=== PATIENT | female | born 1955 | race African-American/Black ===

== ENCOUNTER 2017-03-18 14:16 | Emergency (ER) | payer MEDICAID ==
[~2017-03-18] VITALS: Ht 160 cm; Wt 101.7 kg
[2017-03-18] MEDS ORDERED: HUMA100I5 SC (14:37)
[2017-03-18] MEDS ORDERED: OMEP40CA2 PO ×2 (14:37→20:38)
[2017-03-18] MEDS ORDERED: COUM2.5T17 PO (14:37)
[2017-03-18] MEDS ORDERED: LISI20TA3 PO (14:37)
[2017-03-18] MEDS ORDERED: INSULANT SC (14:37)
[2017-03-18] MEDS ORDERED: METO37.5 PO (14:37)
[2017-03-18] MEDS ORDERED: PRAV40TA2 PO (14:37)
[2017-03-18] MEDS ORDERED: GLYB25TA PO (14:37)
[2017-03-18 15:22] LABS: BASO # 0.1 K/mm3 (0.0-0.2); BASO % 0.8 % (0.0-1.0); EOS # 0.2 K/mm3 (0.0-0.50); EOS % 3.4 % (0.0-3.0); LARGE UNSTAINED CELL # 0.2 K/mm3 (0.0-0.4); LARGE UNSTAINED CELL % 2.4 % (0.0-4.0); LYMPH # 2.5 K/mm3 (1.5-4.5); LYMPH % 31.2 % (24.0-44.0); MEAN CORPUSCULAR HEMOGLOBIN 27.6 pg (27.0-33.0); MEAN CORPUSCULAR HGB CONC 31.3 g/dl (32.0-36.5); MEAN CORPUSCULAR VOLUME 88.4 fl (80.0-96.0); MONO # 0.3 K/mm3 (0.0-0.8); MONO % 4.3 % (0.0-5.0); NEUTROPHILS # 4.3 K/mm3 (1.8-7.7); NEUTROPHILS % 57.9 % (36.0-66.0); PLATELET COUNT, AUTOMATED 182 k/mm3 (150-450); RED CELL DISTRIBUTION WIDTH 14.6 % (11.5-14.5); WHITE BLOOD COUNT 7.4 K/mm3 (4.0-10.0)
[2017-03-18 15:28] LABS: INR 1.09
[2017-03-18 15:33] LABS: ALBUMIN 3.1 GM/DL (3.2-5.2); ALBUMIN/GLOBULIN RATIO 0.84 (1.00-1.93); ALKALINE PHOSPHATASE 75 U/L (45-117); ALT/SGPT 31 U/L (12-78); ANION GAP 9 MEQ/L (8-16); AST/SGOT 27 U/L (15-37); BILIRUBIN,DIRECT 0.2 MG/DL (0.0-0.2); BILIRUBIN,TOTAL 0.6 MG/DL (0.2-1.0); BLOOD UREA NITROGEN 17 MG/DL (7-18); CALCIUM LEVEL 8.4 MG/DL (8.8-10.2); CARBON DIOXIDE LEVEL 27 MEQ/L (21-32); CHLORIDE LEVEL 105 MEQ/L (98-107); CREATININE FOR GFR 1.17 MG/DL (0.55-1.02); GLOMERULAR FILTRATION RATE > 60.0 (>45); GLUCOSE, FASTING 287 MG/DL (80-110); POTASSIUM SERUM 4.2 MEQ/L (3.5-5.1); SODIUM LEVEL 141 MEQ/L (136-145); TOTAL PROTEIN 6.8 GM/DL (6.4-8.2)
--- NOTE | 2017-03-18 16:37 | REP ---
Clinical: Acute abdominal pain. Technique: Vo scale ultrasound using curved array transducer. Findings: The liver and pancreas are normal in contour, size, and echogenicity without focal hepatic or pancreatic lesions identified. The gallbladder is normal without gallstones, wall thickening or pericholecystic fluid. No biliary ductal dilatation is appreciated, and the common bile duct measures 2.2 mm diameter. The right kidney is normal in reniform shape without hydronephrosis and measures 11.7 x 4.6 x 5.0 cm. No ascites. Impression: Normal right upper quadrant and gallbladder abdominal ultrasound. Signed by Mohamud Sims MD 03/18/2017 04:28 P
[2017-03-18] MEDS ORDERED: GASTROGRAFIN SOLUTION 30ML (Q9963) PO ONE ×2 (17:30→17:50)
[2017-03-18] MEDS ORDERED: ISOVUE-370 76% 100ML VIAL (Q9967) As Ordered ONE (19:42)
[2017-03-18] MEDS ORDERED: LISINOPRIL 10 MG TAB PO ONE (20:15)
[2017-03-18] MEDS ORDERED: LISINOPRIL 5 MG TAB PO ONE (20:15)
--- NOTE | 2017-03-18 20:30 | REPUSA ---
CLINICAL HISTORY: Pancreatitis. TECHNIQUE: CT abdomen and pelvis following administration of IV contrast. Total DLP 846.7 mGy*cm COMPARISON: No pertinent prior studies are available at this time. CT ABDOMEN WITH CONTRAST: Lung bases: No lung base infiltrate or effusion. Mild cardiomegaly. Median sternotomy. Liver: No intrahepatic ductal dilation. Gallbladder: Normally distended. Pancreas: No pancreatic duct dilation. Duodenum: Duodenal diverticulum noted. Bowel loops: Nondistended. Spleen: Normal size. Adrenals: Bilateral adrenal thickening. Kidneys: No hydronephrosis. Bilateral cortical scarring. Aorta: Normal caliber. Peritoneum: No free air. Lumbar spine: Degenerative spondylotic changes at multiple levels, most pronounced at L5-S1. CT PELVIS WITH CONTRAST: Colon: Scattered diverticula without evidence of diverticulitis. Appendix: Normal appendix is seen. Bladder: Normally distended. Pelvic organs: Unremarkable. Peritoneum: No fluid. IMPRESSION: 1. No acute abdominal findings. No CT evidence of pancreatitis. 2. Chronic bilateral renal cortical scarring. 3. Colonic diverticulosis.
[2017-03-18 20:31] VITALS: BP 191/96
[2017-03-18 20:49] VITALS: BP 177/115
--- NOTE | 2017-03-19 07:55 | ECGEPIP ---
Stationary ECG Study [facility] - ED Test Date: 2017-03-18 Pat Name: LILY FRANCISCO Department: Room: - Gender: F Jira Developer: rn : [id number] Requested By: Aly Tellez Order Number: [id number] Reading MD: Denise Barros Measurements Intervals [place] Rate: 80 P: IA: 0 QRS: 5 QRSD: 98 T: 91 QT: 396 QTc: 458 Interpretive Statements ATRIAL FIBRILLATION NONSPECIFIC T-WAVE ABNORMALITY NO PRIOR FOR COMPARISON Electronically Signed On 03-19-2017 7:55:17 EDT by Denise Barros
== END 2017-03-18 20:57 | disposition home or self-care (01) ==
LOC: M ED 14:16
DX: K21.9 Gastro-esophageal reflux disease without esophagitis (principal); I10 Essential (primary) hypertension; E11.9 Type 2 diabetes mellitus without complications; I48.91 Unspecified atrial fibrillation; E78.5 Hyperlipidemia, unspecified; E66.9 Obesity, unspecified; Z79.01 Long term (current) use of anticoagulants; Z79.899 Other long term (current) drug therapy; Z79.4 Long term (current) use of insulin; Z95.3 Presence of xenogenic heart valve
CPT/HCPCS: 74177; 76705; 80048; 80076; 82550; 82553; 83690; 85025; 85610; 93005; 93041; 99285; Q9963; Q9967

== ENCOUNTER → 2017-03-18 | Outpatient (CLI) | payer MEDICAID ==
[~2017-03-18] MED LIST: COUM2.5T17 PO; GLYB25TA PO; HUMA100I5 SC; INSULANT SC; LISI20TA3 PO; METO37.5 PO; OMEP40CA2 PO; PRAV40TA2 PO
--- NOTE | 2017-03-18 13:39 | REP ---
Clinical: Shortness of breath. Technique: PA and lateral. Comparison: None. Findings: The patient is status post sternotomy and cardiac valve repair. Cardiomegaly is appreciated along with findings to suggest interstitial edema. No focal consolidation, effusion, or pneumothorax. Skeletal structures intact. Impression: Cardiomegaly and findings to suggest mild interstitial edema. Signed by Mohamud Sims MD 03/18/2017 01:30 P
== END ==
LOC: M LRY 13:06
PROVIDERS: ATTEND Nurse Practitioner Family
DX: R06.02 Shortness of breath (principal); I51.7 Cardiomegaly

== ENCOUNTER → 2017-03-18 | Outpatient (REF) | payer MEDICAID | LOC: M SFHCLERA 12:58 | PROVIDERS: ATTEND Nurse Practitioner Family | DX: R10.84 Generalized abdominal pain (principal) ==

== ENCOUNTER → 2017-03-22 | Outpatient (REF) | payer MEDICAID ==
[2017-03-22 11:38] LABS: MEAN CORPUSCULAR HEMOGLOBIN 28.3 pg (27.0-33.0); MEAN CORPUSCULAR HGB CONC 32.1 g/dl (32.0-36.5); MEAN CORPUSCULAR VOLUME 88.1 fl (80.0-96.0); RED CELL DISTRIBUTION WIDTH 14.4 % (11.5-14.5); WHITE BLOOD COUNT 7.2 K/mm3 (4.0-10.0)
[2017-03-22 11:39] LABS: INR 1.03
[2017-03-22 11:56] LABS: ALBUMIN 3.3 GM/DL (3.2-5.2); ALBUMIN/GLOBULIN RATIO 0.87 (1.00-1.93); BILIRUBIN,TOTAL 0.6 MG/DL (0.2-1.0); CALCIUM LEVEL 9.5 MG/DL (8.8-10.2); CREATININE FOR GFR 1.24 MG/DL (0.55-1.02); GLOMERULAR FILTRATION RATE 56.2 (>45); POTASSIUM SERUM 4.6 MEQ/L (3.5-5.1); TOTAL PROTEIN 7.1 GM/DL (6.4-8.2)
[2017-03-22 14:16] LABS: BASOPHILS 1 % (0-4); EOSINOPHILS 1 % (0-5)
[2017-03-22 14:18] LABS: ANISOCYTOSIS 1+
== END ==
LOC: M SFHCLERA 09:08
PROVIDERS: ATTEND Family Medicine
DX: I10 Essential (primary) hypertension (principal); Z95.2 Presence of prosthetic heart valve; Z79.01 Long term (current) use of anticoagulants; Z51.81 Encounter for therapeutic drug level monitoring; E11.9 Type 2 diabetes mellitus without complications; K21.9 Gastro-esophageal reflux disease without esophagitis

== ENCOUNTER → 2017-03-29 | Outpatient (CLI) | payer MEDICAID ==
--- NOTE | 2017-03-29 16:23 | REP ---
Chest x-ray: Two views. History: Orthopnea. Comparison study: March 18, 2017. Findings: The patient is status post median sternotomy and what appears to be an aortic valve replacement. The heart is moderately enlarged unchanged from prior study with cardiothoracic ratio today measuring 17.5 cm over 29.1 cm. Pulmonary vasculature is slightly cephalized. There is no evidence of pleural effusion or pulmonary edema. No infiltrate is seen. Impression: Moderate cardiac enlargement status post valve replacement. Pulmonary vascular cephalization. No pulmonary edema or pleural effusion seen. Signed by Wang Rose MD 03/29/2017 06:40 P
== END ==
LOC: M LRY 12:04
PROVIDERS: ATTEND Family Medicine
DX: R06.01 Orthopnea (principal); Z95.2 Presence of prosthetic heart valve

== ENCOUNTER → 2017-03-29 | Outpatient (REF) | payer MEDICAID ==
[2017-03-29 17:39] LABS: INR 1.03
== END ==
LOC: M SFHCLERA 11:36
PROVIDERS: ATTEND Family Medicine
DX: R06.01 Orthopnea (principal); Z79.01 Long term (current) use of anticoagulants

== ENCOUNTER → 2017-04-06 | Outpatient (REF) | payer MEDICAID ==
[2017-04-06 15:49] LABS: INR 1.11
== END ==
LOC: M SFHCLERA 09:09
PROVIDERS: ATTEND Family Medicine
DX: I48.91 Unspecified atrial fibrillation (principal)

== ENCOUNTER → 2017-04-19 | Outpatient (REF) | payer MEDICAID ==
[2017-04-19 13:07] LABS: INR 1.5
== END ==
LOC: M SFHCLERA 09:16
PROVIDERS: ATTEND Family Medicine
DX: Z79.01 Long term (current) use of anticoagulants (principal)

== ENCOUNTER → 2017-05-25 | Outpatient (REF) | payer OTHER | LOC: M SFHCLERA 08:42 | PROVIDERS: ATTEND Family Medicine | DX: E11.22 Type 2 diabetes mellitus with diabetic chronic kidney disease (principal); N18.9 Chronic kidney disease, unspecified ==

== ENCOUNTER → 2017-06-05 | Outpatient (REF) | payer OTHER ==
[2017-06-05 12:36] LABS: INR 1.36
== END ==
LOC: M SFHCLERA 08:09
PROVIDERS: ATTEND Family Medicine
DX: Z79.01 Long term (current) use of anticoagulants (principal)

== ENCOUNTER → 2017-06-12 | Outpatient (REF) | payer OTHER ==
[2017-06-12 11:40] LABS: INR 1.13
== END ==
LOC: M SFHCLERA 09:49
PROVIDERS: ATTEND Family Medicine
DX: I48.91 Unspecified atrial fibrillation (principal)

== ENCOUNTER → 2017-06-21 | Outpatient (REF) | payer OTHER ==
[2017-06-21 16:42] LABS: INR 1.53
== END ==
LOC: M SFHCLERA 12:29
PROVIDERS: ATTEND Family Medicine
DX: I48.91 Unspecified atrial fibrillation (principal)

== ENCOUNTER → 2017-06-28 | Outpatient (REF) | payer OTHER ==
[2017-06-28 11:49] LABS: INR 3.59
== END ==
LOC: M SFHCLERA 08:24
PROVIDERS: ATTEND Family Medicine
DX: I48.91 Unspecified atrial fibrillation (principal)

== ENCOUNTER → 2017-07-26 | Outpatient (REF) | payer OTHER ==
[2017-07-26 11:30] LABS: ANION GAP 5 MEQ/L (8-16); BLOOD UREA NITROGEN 22 MG/DL (7-18); CARBON DIOXIDE LEVEL 31 MEQ/L (21-32); CHLORIDE LEVEL 105 MEQ/L (98-107); GLOMERULAR FILTRATION RATE > 60.0 (>45); GLUCOSE, FASTING 188 MG/DL (80-110); POTASSIUM SERUM 4.3 MEQ/L (3.5-5.1); SODIUM LEVEL 141 MEQ/L (136-145)
[2017-07-26 11:39] LABS: INR 4.69; PROTHROMBIN TIME 46.7 SECONDS (12.4-14.5)
== END ==
LOC: M SFHCLERA 08:10
DX: R79.1 Abnormal coagulation profile (principal)

== ENCOUNTER → 2017-07-28 | Outpatient (REF) | payer OTHER ==
[2017-07-28 13:14] LABS: INR 2.97; PROTHROMBIN TIME 32.2 SECONDS (12.4-14.5)
== END ==
LOC: M SFHCLERA 09:10
DX: Z79.01 Long term (current) use of anticoagulants (principal)

== ENCOUNTER → 2017-08-01 | Outpatient (REF) | payer OTHER ==
[2017-08-01 17:37] LABS: PROTHROMBIN TIME 49.8 SECONDS (12.4-14.5)
[2017-08-01 18:19] LABS: INR 5.07
== END ==
LOC: M SFHCLERA 14:19
DX: Z79.01 Long term (current) use of anticoagulants (principal)

== ENCOUNTER → 2017-08-14 | Outpatient (REF) | payer OTHER ==
[2017-08-14 11:59] LABS: INR 2.73; PROTHROMBIN TIME 30.1 SECONDS (12.4-14.5)
== END ==
LOC: M SFHCLERA 08:40
DX: Z79.01 Long term (current) use of anticoagulants (principal)

== ENCOUNTER → 2017-08-22 | Outpatient (REF) | payer OTHER ==
[2017-08-22 11:37] LABS: INR 4.64; PROTHROMBIN TIME 46.3 SECONDS (12.4-14.5)
== END ==
LOC: M SFHCLERA 07:14
DX: Z79.01 Long term (current) use of anticoagulants (principal)
CPT/HCPCS: 85610

== ENCOUNTER → 2017-08-24 | Outpatient (REF) | payer OTHER ==
[2017-08-24 11:29] LABS: INR 3.28; PROTHROMBIN TIME 34.9 SECONDS (12.4-14.5)
== END ==
LOC: M SFHCLERA 08:07
DX: Z51.81 Encounter for therapeutic drug level monitoring (principal); Z79.01 Long term (current) use of anticoagulants
CPT/HCPCS: 85610

== ENCOUNTER → 2017-09-04 | Outpatient (REF) | payer OTHER ==
[2017-09-04 11:38] LABS: INR 2.55; PROTHROMBIN TIME 28.5 SECONDS (12.4-14.5)
== END ==
LOC: M SFHCLERA 09:51
DX: Z79.01 Long term (current) use of anticoagulants (principal)

== ENCOUNTER → 2017-09-11 | Outpatient (REF) | payer OTHER ==
[2017-09-11 11:23] LABS: PROTHROMBIN TIME 21.4 SECONDS (12.4-14.5)
== END ==
LOC: M SFHCLERA 08:19
DX: Z79.01 Long term (current) use of anticoagulants (principal)
CPT/HCPCS: 85610

== ENCOUNTER → 2017-09-25 | Outpatient (REF) | payer OTHER ==
[2017-09-25 11:38] LABS: INR 3.14; PROTHROMBIN TIME 33.7 SECONDS (12.4-14.5)
== END ==
LOC: M SFHCLERA 08:24
DX: Z51.81 Encounter for therapeutic drug level monitoring (principal); Z79.01 Long term (current) use of anticoagulants

== ENCOUNTER → 2017-10-02 | Outpatient (REF) | payer OTHER ==
[2017-10-02 11:43] LABS: INR 3.65; PROTHROMBIN TIME 38.1 SECONDS (12.4-14.5)
== END ==
LOC: M SFHCLERA 08:34
DX: Z79.01 Long term (current) use of anticoagulants (principal)

== ENCOUNTER → 2017-10-09 | Outpatient (CLI) | payer OTHER ==
[2017-10-09 11:49] LABS: PROTHROMBIN TIME 25.3 SECONDS (12.4-14.5)
== END ==
LOC: M LRY 09:10
DX: Z51.81 Encounter for therapeutic drug level monitoring (principal); Z79.01 Long term (current) use of anticoagulants
CPT/HCPCS: 85610

== ENCOUNTER 2017-10-24 00:37 | Inpatient (IN) | payer OTHER ==
[2017-10-24] MEDS ORDERED: ALBUTEROL SULFATE 2.5 MG/0.5 ML INH NEB SOLN NEB (02:15)
[2017-10-24] MEDS: NS 500 ML IV (02:45)
[2017-10-24 02:52] LABS: BASO % 0.5 % (0.0-1.0); EOS # 0.1 10^3/uL (0.0-0.50); EOS % 1.1 % (0.0-3.0); HEMATOCRIT 40.8 % (36.0-47.0); LYMPH # 1.9 10^3/uL (1.5-4.5); MEAN CORPUSCULAR HEMOGLOBIN 27.6 pg (27.0-33.0); MEAN CORPUSCULAR HGB CONC 31.9 g/dl (32.0-36.5); MEAN CORPUSCULAR VOLUME 86.6 fl (80.0-96.0); MONO # 0.7 10^3/uL (0.0-0.8); MONO % 8.5 % (0.0-5.0); NEUTROPHILS # 5.8 10^3/uL (1.8-7.7); NEUTROPHILS % 66.9 % (36.0-66.0); PLATELET COUNT, AUTOMATED 244 10^3/uL (150-450); RED BLOOD COUNT 4.71 10^6/uL (4.00-5.40); RED CELL DISTRIBUTION WIDTH 14.7 % (11.5-14.5); WHITE BLOOD COUNT 8.7 10^3/uL (4.0-10.0)
[2017-10-24] MEDS: MORPHINE 4 MG/ML 1ML VIAL/SYRINGE (J2270) IV ×2 (02:53→07:45)
[2017-10-24 02:57] LABS: INR 3.31; PROTHROMBIN TIME 35.2 SECONDS (12.4-14.5)
[2017-10-24 02:58] LABS: PARTIAL THROMBOPLASTIN TIME 56.3 SECONDS (26.8-37.9)
[2017-10-24 03:08] LABS: LACTIC ACID SEPSIS PROTOCOL 1.5 MMOL/L (0.4-2.0)
[2017-10-24 03:08] LABS: ALBUMIN 3.5 GM/DL (3.2-5.2); ALKALINE PHOSPHATASE 110 U/L (45-117); ALT/SGPT 26 U/L (12-78); ANION GAP 8 MEQ/L (8-16); AST/SGOT 27 U/L (7-37); BILIRUBIN,DIRECT 0.3 MG/DL (0.0-0.2); BILIRUBIN,TOTAL 1.2 MG/DL (0.2-1.0); BLOOD UREA NITROGEN 17 MG/DL (7-18); CALCIUM LEVEL 8.9 MG/DL (8.8-10.2); CARBON DIOXIDE LEVEL 26 MEQ/L (21-32); CHLORIDE LEVEL 103 MEQ/L (98-107); CK-MB VALUE MASS 1.5 NG/ML (<3.6); CPK CREATINE PHOSPHOKINASE 150 U/L (26-192); CREATININE FOR GFR 1.18 MG/DL (0.55-1.30); GLOMERULAR FILTRATION RATE 59.5 (>45); GLUCOSE, FASTING 301 MG/DL (70-100); LIPASE 403 U/L (73-393); POTASSIUM SERUM 4.3 MEQ/L (3.5-5.1); SODIUM LEVEL 137 MEQ/L (136-145); TOTAL PROTEIN 7.4 GM/DL (6.4-8.2); TROPONIN I < 0.02 NG/ML (< 0.10)
[2017-10-24] MEDS: GASTROGRAFIN SOLUTION 30ML PO ×2 (03:35→04:05)
[2017-10-24] MEDS: HumuLIN R (REGULAR) INSULIN (NovoLIN R) **100U/ML** PER UNIT IV (06:32)
[2017-10-24] MEDS: METOPROLOL TARTRATE 100 MG TAB PO (07:00)
[2017-10-24 07:05] LABS: BEDSIDE GLUCOSE 228 MG/DL (80-115)
[2017-10-24] MEDS: amLODIPine 5 MG TAB PO ×2 (07:12→08:00)
[2017-10-24] MEDS: FUROSEMIDE 40 MG/4 ML VIAL (J1940) IV ×3 (07:20→23:58)
[2017-10-24] MEDS ORDERED: PERCOCET 5MG/325MG TAB PO (07:30)
[2017-10-24] MEDS ORDERED: ONDANSETRON 4MG/2ML VIAL (J2405) IV (07:30)
[2017-10-24] MEDS ORDERED: MORPHINE 4 MG/ML 1ML VIAL/SYRINGE (J2270) IV (07:30)
[2017-10-24] MEDS ORDERED: DEXTROSE 50% 50 ML SYRINGE IV (07:45)
[2017-10-24] MEDS ORDERED: amLODIPine 5 MG TAB PO (07:45)
[2017-10-24] MEDS ORDERED: GLUCAGON FOR INJ 1 MG VIAL (J1610) SC (07:45)
[2017-10-24] MEDS ORDERED: GI COCKTAIL 50ML BTL(HYOSCYAMINE/MAALOX/LIDOCAINE VISCOUS)(1:3:1) PO (07:45)
[2017-10-24] MEDS: oxyCODONE 5MG TAB PO (07:45)
[2017-10-24] MEDS ORDERED: GLUCOSE 4 GM CHEW TABLET PO (07:45)
[2017-10-24] MEDS: GI COCKTAIL 50ML BTL(HYOSCYAMINE/MAALOX/LIDOCAINE VISCOUS)(1:3:1) PO (08:33)
[2017-10-24] MEDS: D5W/0.45% SODIUM CHLORIDE 1,000 ML IV (08:33)
[2017-10-24] MEDS: SUCRALFATE SUSP 1GM/10ML UD PO (08:33)
[2017-10-24] MEDS: ENOXAPARIN 40 MG/0.4 ML SYRINGE (J1650) SC (09:00)
[2017-10-24] MEDS: PANTOPRAZOLE 40MG INJ (PROTONIX) (C9113) IV (09:20)
[2017-10-24] MEDS ORDERED: DOCUSATE SODIUM 100 MG CAP PO (10:15)
[2017-10-24 10:53] LABS: APPEARANCE, URINE CLEAR (CLEAR); BACTERIA, URINE AUTO NEGATIVE (NEGATIVE); BILIRUBIN, URINE AUTO NEGATIVE (NEGATIVE); BLOOD, URINE BLOOD NEGATIVE (NEGATIVE); COLOR, URINE YELLOW (YELLOW); GLUCOSE, URINE (UA) AUTO NEGATIVE (NEGATIVE); KETONE, URINE AUTO NEGATIVE (NEGATIVE); LEUKOCYTE ESTERASE, URINE AUTO NEGATIVE (NEGATIVE); MUCUS, URINE SMALL (NEGATIVE); NITRITE, URINE AUTO NEGATIVE (NEGATIVE); PROTEIN, URINE AUTO 1+ mg/dL (NEGATIVE); RBC, URINE AUTO 4 /HPF (0-3); SPECIFIC GRAVITY URINE AUTO 1.006 (1.002-1.035); SQUAMOUS EPITHELIAL CELL UR AU 1 /HPF (0-6); UROBILINOGEN, URINE AUTO 0.2 mg/dL (0.0-2.0); WBC, URINE AUTO 1 /HPF (0-3)
[2017-10-24 11:07] LABS: NT-PRO BNP 4110 PG/ML (<125)
[2017-10-24] MEDS: SPIRONOLACTONE 25 MG TAB PO (11:08)
[2017-10-24] MEDS: ASPIRIN 81 MG CHEW TABLET PO (11:08)
[2017-10-24] MEDS: FAMOTIDINE 20 MG TAB PO ×2 (11:08→21:27)
[2017-10-24] MEDS: PRAVASTATIN 20 MG TAB PO (11:40)
[2017-10-24] MEDS: HumaLOG INSULIN (NovoLOG) PER UNIT SC ×3 (11:40→23:59)
[2017-10-24] MEDS ORDERED: SUCRALFATE SUSP 1GM/10ML UD PO (12:00)
[2017-10-24 12:53] LABS: CK-MB VALUE MASS 1.6 NG/ML (<3.6); CPK CREATINE PHOSPHOKINASE 129 U/L (26-192); MB/CK RELATIVE INDEX 1.24 (< OR =4); TROPONIN I < 0.02 NG/ML (< 0.10)
[2017-10-24 14:20] LABS: BEDSIDE GLUCOSE 211 MG/DL (80-115)
[2017-10-24 16:44] LABS: BEDSIDE GLUCOSE 183 MG/DL (80-115)
[2017-10-24] MEDS: METOCLOPRAMIDE 10 MG TAB PO ×2 (17:17→23:58)
[2017-10-24 19:21] LABS: CPK CREATINE PHOSPHOKINASE 136 U/L (26-192); TROPONIN I < 0.02 NG/ML (< 0.10)
[2017-10-24 19:22] LABS: CK-MB VALUE MASS 1.6 NG/ML (<3.6); MB/CK RELATIVE INDEX 1.17 (< OR =4)
[2017-10-24] MEDS: METOPROLOL TART 50 MG TAB PO (21:28)
[2017-10-24 23:53] LABS: BEDSIDE GLUCOSE 160 MG/DL (80-115)
[2017-10-25 01:18] LABS: CK-MB VALUE MASS 1.4 NG/ML (<3.6); CPK CREATINE PHOSPHOKINASE 131 U/L (26-192); MB/CK RELATIVE INDEX 1.06 (< OR =4); TROPONIN I < 0.02 NG/ML (< 0.10)
[2017-10-25] MEDS: HumaLOG INSULIN (NovoLOG) PER UNIT SC ×4 (06:00→21:00)
[2017-10-25 06:05] LABS: BEDSIDE GLUCOSE 94 MG/DL (80-115)
[2017-10-25 06:13] LABS: BASO % 0.4 % (0.0-1.0); EOS # 0.1 10^3/uL (0.0-0.50); EOS % 1.1 % (0.0-3.0); HEMATOCRIT 39.3 % (36.0-47.0); HEMOGLOBIN 12.7 g/dl (12.0-15.5); IMMATURE GRANULOCYTE % 0.5 % (0-3.0); LYMPH # 2.9 10^3/uL (1.5-4.5); LYMPH % 28.2 % (24.0-44.0); MEAN CORPUSCULAR HEMOGLOBIN 27.7 pg (27.0-33.0); MEAN CORPUSCULAR HGB CONC 32.3 g/dl (32.0-36.5); MEAN CORPUSCULAR VOLUME 85.6 fl (80.0-96.0); MONO # 0.8 10^3/uL (0.0-0.8); MONO % 7.8 % (0.0-5.0); NEUTROPHILS # 6.3 10^3/uL (1.8-7.7); PLATELET COUNT, AUTOMATED 243 10^3/uL (150-450); RED BLOOD COUNT 4.59 10^6/uL (4.00-5.40); RED CELL DISTRIBUTION WIDTH 14.6 % (11.5-14.5); WHITE BLOOD COUNT 10.2 10^3/uL (4.0-10.0)
[2017-10-25 06:28] LABS: INR 2.96; PROTHROMBIN TIME 32.1 SECONDS (12.4-14.5)
[2017-10-25] MEDS: METOCLOPRAMIDE 10 MG TAB PO ×4 (06:28→22:54)
[2017-10-25 06:37] LABS: ALBUMIN 3.1 GM/DL (3.2-5.2); ALBUMIN/GLOBULIN RATIO 0.74 (1.00-1.93); ALKALINE PHOSPHATASE 96 U/L (45-117); ALT/SGPT 28 U/L (12-78); ANION GAP 6 MEQ/L (8-16); AST/SGOT 31 U/L (7-37); BILIRUBIN,TOTAL 1.2 MG/DL (0.2-1.0); BLOOD UREA NITROGEN 23 MG/DL (7-18); CALCIUM LEVEL 8.7 MG/DL (8.8-10.2); CARBON DIOXIDE LEVEL 31 MEQ/L (21-32); CHLORIDE LEVEL 103 MEQ/L (98-107); CREATININE FOR GFR 1.21 MG/DL (0.55-1.30); GLOMERULAR FILTRATION RATE 57.8 (>45); GLUCOSE, FASTING 99 MG/DL (70-100); POTASSIUM SERUM 3.5 MEQ/L (3.5-5.1); SODIUM LEVEL 140 MEQ/L (136-145); TOTAL PROTEIN 7.3 GM/DL (6.4-8.2)
[2017-10-25] MEDS ORDERED: GLUCOSE 4 GM CHEW TABLET PO (08:00)
[2017-10-25] MEDS ORDERED: GLUCAGON FOR INJ 1 MG VIAL (J1610) SC (08:00)
[2017-10-25] MEDS ORDERED: DEXTROSE 50% 50 ML SYRINGE IV (08:00)
[2017-10-25] MEDS: ASPIRIN 81 MG CHEW TABLET PO (08:37)
[2017-10-25] MEDS: FAMOTIDINE 20 MG TAB PO ×2 (08:37→20:27)
[2017-10-25] MEDS: CALCIUM GLUCONATE 1,000 MG in D5W MINI-BAG PLUS 100 ML IV (08:37)
[2017-10-25] MEDS: FUROSEMIDE 40 MG/4 ML VIAL (J1940) IV ×3 (08:37→23:34)
[2017-10-25] MEDS: amLODIPine 5 MG TAB PO (08:38)
[2017-10-25] MEDS: SPIRONOLACTONE 25 MG TAB PO (08:38)
[2017-10-25] MEDS: METOPROLOL TARTRATE 100 MG TAB PO (08:38)
[2017-10-25] MEDS: PRAVASTATIN 20 MG TAB PO (08:38)
[2017-10-25 11:50] LABS: BEDSIDE GLUCOSE 349 MG/DL (80-115)
[2017-10-25] MEDS: hydroCHLOROthiazide 25 MG TAB PO (12:27)
[2017-10-25] MEDS: LISINOPRIL 20 MG TAB PO (12:27)
[2017-10-25 16:58] LABS: BEDSIDE GLUCOSE 253 MG/DL (80-115)
[2017-10-25] MEDS ORDERED: WARFARIN SOD 4 MG TAB PO (17:00)
[2017-10-25] MEDS: WARFARIN SOD 5 MG TAB PO (17:29)
[2017-10-25] MEDS: OMEPRAZOLE 20 MG CAP PO (20:27)
[2017-10-25] MEDS: METOPROLOL TART 50 MG TAB PO (20:29)
[2017-10-26 05:45] LABS: BASO % 0.4 % (0.0-1.0); EOS # 0.1 10^3/uL (0.0-0.50); EOS % 1.3 % (0.0-3.0); HEMATOCRIT 43.3 % (36.0-47.0); HEMOGLOBIN 13.9 g/dl (12.0-15.5); IMMATURE GRANULOCYTE % 0.3 % (0-3.0); LYMPH # 2.4 10^3/uL (1.5-4.5); LYMPH % 25.9 % (24.0-44.0); MEAN CORPUSCULAR HEMOGLOBIN 27.4 pg (27.0-33.0); MEAN CORPUSCULAR HGB CONC 32.1 g/dl (32.0-36.5); MEAN CORPUSCULAR VOLUME 85.2 fl (80.0-96.0); MONO # 0.8 10^3/uL (0.0-0.8); MONO % 8.6 % (0.0-5.0); NEUTROPHILS # 5.9 10^3/uL (1.8-7.7); NEUTROPHILS % 63.5 % (36.0-66.0); PLATELET COUNT, AUTOMATED 270 10^3/uL (150-450); RED BLOOD COUNT 5.08 10^6/uL (4.00-5.40); RED CELL DISTRIBUTION WIDTH 14.8 % (11.5-14.5); WHITE BLOOD COUNT 9.3 10^3/uL (4.0-10.0)
[2017-10-26 05:55] LABS: INR 2.22; PROTHROMBIN TIME 25.5 SECONDS (12.4-14.5)
[2017-10-26] MEDS: METOCLOPRAMIDE 10 MG TAB PO ×2 (06:07→12:22)
[2017-10-26 06:09] LABS: ALBUMIN 3.4 GM/DL (3.2-5.2); ALBUMIN/GLOBULIN RATIO 0.81 (1.00-1.93); ALKALINE PHOSPHATASE 109 U/L (45-117); ALT/SGPT 31 U/L (12-78); ANION GAP 7 MEQ/L (8-16); AST/SGOT 38 U/L (7-37); BILIRUBIN,TOTAL 1.2 MG/DL (0.2-1.0); BLOOD UREA NITROGEN 24 MG/DL (7-18); CARBON DIOXIDE LEVEL 33 MEQ/L (21-32); CHLORIDE LEVEL 101 MEQ/L (98-107); CREATININE FOR GFR 1.38 MG/DL (0.55-1.30); GLOMERULAR FILTRATION RATE 49.6 (>45); GLUCOSE, FASTING 108 MG/DL (70-100); POTASSIUM SERUM 3.1 MEQ/L (3.5-5.1); SODIUM LEVEL 141 MEQ/L (136-145); TOTAL PROTEIN 7.6 GM/DL (6.4-8.2)
[2017-10-26 06:27] LABS: NT-PRO BNP 2144 PG/ML (<125)
[2017-10-26] MEDS: ASPIRIN 81 MG CHEW TABLET PO (09:08)
[2017-10-26] MEDS: FAMOTIDINE 20 MG TAB PO (09:08)
[2017-10-26] MEDS: POTASSIUM CHLORIDE 10 MEQ SR TABLET PO ×2 (09:08→09:52)
[2017-10-26] MEDS: HumaLOG INSULIN (NovoLOG) PER UNIT SC ×2 (09:08→12:22)
[2017-10-26] MEDS: SPIRONOLACTONE 25 MG TAB PO (09:09)
[2017-10-26] MEDS: hydroCHLOROthiazide 25 MG TAB PO (09:09)
[2017-10-26] MEDS: LISINOPRIL 20 MG TAB PO (09:09)
[2017-10-26] MEDS: PRAVASTATIN 20 MG TAB PO (09:09)
[2017-10-26] MEDS: METOPROLOL TARTRATE 100 MG TAB PO (09:09)
[2017-10-26] MEDS: FUROSEMIDE 40 MG/4 ML VIAL (J1940) IV (09:10)
[2017-10-26] MEDS: amLODIPine 5 MG TAB PO (09:10)
[2017-10-26 12:23] LABS: BEDSIDE GLUCOSE 209 MG/DL (80-115)
[2017-10-26 12:23] LABS: BEDSIDE GLUCOSE 160 MG/DL (80-115)
== END 2017-10-26 12:38 | disposition home or self-care (01) | DRG 194 ==
LOC: M ED 00:37 → M ED INP 07:29 → M MSPAV 12:14
DX: I11.0 Hypertensive heart disease with heart failure (principal); E11.43 Type 2 diabetes mellitus with diabetic autonomic (poly)neuropathy; Z95.2 Presence of prosthetic heart valve; Z79.01 Long term (current) use of anticoagulants; K52.9 Noninfective gastroenteritis and colitis, unspecified; I48.91 Unspecified atrial fibrillation; E78.5 Hyperlipidemia, unspecified; K59.00 Constipation, unspecified; I25.10 Atherosclerotic heart disease of native coronary artery without angina pectoris; K21.9 Gastro-esophageal reflux disease without esophagitis; Z86.73 Personal history of transient ischemic attack (TIA), and cerebral infarction without residual deficits; Z79.899 Other long term (current) drug therapy; Z79.82 Long term (current) use of aspirin; I50.31 Acute diastolic (congestive) heart failure

== ENCOUNTER → 2017-11-08 | Outpatient (REF) | payer OTHER | LOC: M SFHCLERA 11:58 | DX: I50.30 Unspecified diastolic (congestive) heart failure (principal) ==

== ENCOUNTER → 2017-11-10 | Outpatient (REF) | payer OTHER ==
[2017-11-10 13:28] LABS: ANION GAP 10 MEQ/L (8-16); BLOOD UREA NITROGEN 33 MG/DL (7-18); CALCIUM LEVEL 9.7 MG/DL (8.8-10.2); CARBON DIOXIDE LEVEL 26 MEQ/L (21-32); CHLORIDE LEVEL 104 MEQ/L (98-107); CREATININE FOR GFR 1.43 MG/DL (0.55-1.30); GLOMERULAR FILTRATION RATE 47.6 (>45); GLUCOSE, FASTING 217 MG/DL (70-100); POTASSIUM SERUM 4.2 MEQ/L (3.5-5.1); SODIUM LEVEL 140 MEQ/L (136-145)
[2017-11-10 13:40] LABS: ESTIMATED AVERAGE GLUCOSE 189 MG/DL (60-110); HEMOGLOBIN A1c 8.2 %
== END ==
LOC: M SFHCLERA 11:42
DX: I50.30 Unspecified diastolic (congestive) heart failure (principal); E11.22 Type 2 diabetes mellitus with diabetic chronic kidney disease

== ENCOUNTER → 2017-12-11 | Outpatient (REF) | payer OTHER ==
[2017-12-11 11:34] LABS: INR 1.34; PROTHROMBIN TIME 16.9 SECONDS (12.4-14.5)
== END ==
LOC: M SFHCPLAZ 08:09
DX: Z51.81 Encounter for therapeutic drug level monitoring (principal); Z79.01 Long term (current) use of anticoagulants

== ENCOUNTER → 2017-12-21 | Outpatient (REF) | payer OTHER ==
[2017-12-21 11:58] LABS: ANION GAP 7 MEQ/L (8-16); BLOOD UREA NITROGEN 30 MG/DL (7-18); CALCIUM LEVEL 9.7 MG/DL (8.8-10.2); CARBON DIOXIDE LEVEL 29 MEQ/L (21-32); CHLORIDE LEVEL 104 MEQ/L (98-107); CREATININE FOR GFR 1.42 MG/DL (0.55-1.30); GLUCOSE, FASTING 103 MG/DL (70-100); POTASSIUM SERUM 4.3 MEQ/L (3.5-5.1); SODIUM LEVEL 140 MEQ/L (136-145)
== END ==
LOC: M SFHCLERA 08:00
DX: Z51.81 Encounter for therapeutic drug level monitoring (principal); Z79.01 Long term (current) use of anticoagulants
CPT/HCPCS: 80048

== ENCOUNTER 2018-02-05 15:49 | Emergency (ER) | payer OTHER ==
[2018-02-05 16:53] LABS: ALBUMIN 3.3 GM/DL (3.2-5.2); ALBUMIN/GLOBULIN RATIO 0.73 (1.00-1.93); ALKALINE PHOSPHATASE 111 U/L (45-117); ALT/SGPT 30 U/L (12-78); ANION GAP 9 MEQ/L (8-16); AST/SGOT 29 U/L (7-37); BILIRUBIN,DIRECT 0.3 MG/DL (0.0-0.2); BILIRUBIN,TOTAL 0.8 MG/DL (0.2-1.0); BLOOD UREA NITROGEN 19 MG/DL (7-18); CALCIUM LEVEL 9.1 MG/DL (8.8-10.2); CARBON DIOXIDE LEVEL 29 MEQ/L (21-32); CHLORIDE LEVEL 103 MEQ/L (98-107); CPK CREATINE PHOSPHOKINASE 125 U/L (26-192); CREATININE FOR GFR 1.26 MG/DL (0.55-1.30); FREE T4 0.94 NG/DL (0.76-1.46); GLUCOSE, FASTING 204 MG/DL (70-100); LIPASE 405 U/L (73-393); POTASSIUM SERUM 4.5 MEQ/L (3.5-5.1); SODIUM LEVEL 141 MEQ/L (136-145); TOTAL PROTEIN 7.8 GM/DL (6.4-8.2); TROPONIN I 0.02 NG/ML (< 0.10)
[2018-02-05 16:54] LABS: BASO # 0.1 10^3/uL (0.0-0.2); BASO % 0.5 % (0.0-1.0); EOS # 0.1 10^3/uL (0.0-0.50); EOS % 1.2 % (0.0-3.0); HEMATOCRIT 47.4 % (36.0-47.0); HEMOGLOBIN 15.1 g/dl (12.0-15.5); IMMATURE GRANULOCYTE % 0.6 % (0-3.0); LYMPH # 3.1 10^3/uL (1.5-4.5); LYMPH % 32.4 % (24.0-44.0); MEAN CORPUSCULAR HEMOGLOBIN 27.4 pg (27.0-33.0); MEAN CORPUSCULAR HGB CONC 31.9 g/dl (32.0-36.5); MONO # 0.9 10^3/uL (0.0-0.8); MONO % 8.8 % (0.0-5.0); NEUTROPHILS # 5.5 10^3/uL (1.8-7.7); NEUTROPHILS % 56.5 % (36.0-66.0); PLATELET COUNT, AUTOMATED 267 10^3/uL (150-450); RED BLOOD COUNT 5.51 10^6/uL (4.00-5.40); RED CELL DISTRIBUTION WIDTH 16.7 % (11.5-14.5); WHITE BLOOD COUNT 9.7 10^3/uL (4.0-10.0)
[2018-02-05 16:58] LABS: CK-MB VALUE MASS 2.3 NG/ML (<3.6); MB/CK RELATIVE INDEX 1.84 (< OR =4)
[2018-02-05 17:02] LABS: INR 1.53; PROTHROMBIN TIME 18.6 SECONDS (12.1-14.4)
[2018-02-05 17:03] LABS: PARTIAL THROMBOPLASTIN TIME 33.1 SECONDS (25.4-37.6)
[2018-02-05] MEDS: METOPROLOL TART 50 MG TAB PO (17:23)
[2018-02-05] MEDS: METOPROLOL 5 MG/5 ML VIAL IV (17:23)
[2018-02-05] MEDS: FUROSEMIDE 40 MG/4 ML VIAL (J1940) IV (17:53)
== END 2018-02-05 19:10 | disposition home or self-care (01) ==
LOC: M ED 15:49
DX: I48.91 Unspecified atrial fibrillation (principal); I50.9 Heart failure, unspecified; I11.0 Hypertensive heart disease with heart failure; J45.909 Unspecified asthma, uncomplicated; K21.9 Gastro-esophageal reflux disease without esophagitis; Z86.73 Personal history of transient ischemic attack (TIA), and cerebral infarction without residual deficits; Z91.14 Patient's other noncompliance with medication regimen; Z79.899 Other long term (current) drug therapy; Z79.01 Long term (current) use of anticoagulants; Z79.4 Long term (current) use of insulin; Z95.3 Presence of xenogenic heart valve
CPT/HCPCS: J1940

== ENCOUNTER → 2018-02-05 | Outpatient (REF) | payer OTHER ==
[2018-02-05 11:40] LABS: ANION GAP 8 MEQ/L (8-16); BLOOD UREA NITROGEN 20 MG/DL (7-18); CALCIUM LEVEL 9.2 MG/DL (8.8-10.2); CARBON DIOXIDE LEVEL 28 MEQ/L (21-32); CHLORIDE LEVEL 105 MEQ/L (98-107); CREATININE FOR GFR 1.23 MG/DL (0.55-1.30); GLOMERULAR FILTRATION RATE 56.5 (>45); GLUCOSE, FASTING 193 MG/DL (70-100); INR 1.53; POTASSIUM SERUM 4.5 MEQ/L (3.5-5.1); PROTHROMBIN TIME 18.6 SECONDS (12.1-14.4); SODIUM LEVEL 141 MEQ/L (136-145)
== END ==
LOC: M SFHCLERA 08:08
DX: Z79.01 Long term (current) use of anticoagulants (principal)

== ENCOUNTER → 2018-02-08 | Outpatient (REF) | payer OTHER ==
[2018-02-08 18:50] LABS: ESTIMATED AVERAGE GLUCOSE 237 MG/DL (60-110); HEMOGLOBIN A1c 9.9 %
[2018-02-08 19:40] LABS: FOLATE 15.4 NG/ML; VITAMIN B12 LEVEL 888 PG/ML
== END ==
LOC: M SFHCLERA 11:24
DX: E11.22 Type 2 diabetes mellitus with diabetic chronic kidney disease (principal)
CPT/HCPCS: 82746

== ENCOUNTER → 2018-02-15 | Outpatient (REF) | payer OTHER ==
[2018-02-15 12:18] LABS: INR 2.67
== END ==
LOC: M SFHCLERA 08:37
DX: E11.22 Type 2 diabetes mellitus with diabetic chronic kidney disease (principal)

== ENCOUNTER → 2018-03-21 | Outpatient (REF) | payer OTHER ==
[2018-03-21 17:27] LABS: INR 3.37; PROTHROMBIN TIME 34.9 SECONDS (12.1-14.4)
== END ==
LOC: M SFHCLERA 13:29
DX: Z79.01 Long term (current) use of anticoagulants (principal)

== ENCOUNTER → 2018-03-27 | Outpatient (REF) | payer OTHER | LOC: M SFHCLERA 08:22 | DX: Z51.81 Encounter for therapeutic drug level monitoring (principal); Z79.01 Long term (current) use of anticoagulants ==

== ENCOUNTER → 2018-03-28 | Outpatient (REF) | payer OTHER ==
[2018-03-28 11:52] LABS: INR 1.43; PROTHROMBIN TIME 17.7 SECONDS (12.1-14.4)
== END ==
LOC: M SFHCLERA 07:44
DX: Z79.01 Long term (current) use of anticoagulants (principal)

== ENCOUNTER → 2018-04-02 | Outpatient (REF) | payer OTHER ==
[2018-04-02 12:05] LABS: INR 1.82; PROTHROMBIN TIME 21.4 SECONDS (12.1-14.4)
== END ==
LOC: M SFHCLERA 07:50
DX: Z79.01 Long term (current) use of anticoagulants (principal)

== ENCOUNTER → 2018-04-18 | Outpatient (REF) | payer OTHER ==
[2018-04-18 16:38] LABS: INR 1.89; PROTHROMBIN TIME 22.1 SECONDS (12.1-14.4)
== END ==
LOC: M SFHCLERA 11:58
DX: Z79.01 Long term (current) use of anticoagulants (principal)

== ENCOUNTER → 2018-04-25 | Outpatient (REF) | payer OTHER ==
[2018-04-25 11:55] LABS: PROTHROMBIN TIME 30.1 SECONDS (12.1-14.4)
== END ==
LOC: M SFHCLERA 08:05
DX: Z51.81 Encounter for therapeutic drug level monitoring (principal); Z79.01 Long term (current) use of anticoagulants
CPT/HCPCS: 85610

== ENCOUNTER 2018-05-08 21:25 | Inpatient (IN) | payer OTHER ==
[2018-05-08] MEDS: IPRATROPIUM 0.5MG/ALBUTEROL 2.5MG INH SOL UD 3ML (DUONEB)(J7620) NEB ×2 (22:16→23:34)
[2018-05-08 22:30] LABS: VENOUS BASE EXCESS -3.1 (-2.0-2.0); VENOUS O2 SATURATION 99.4 % (60.0-80.0); VENOUS PARTIAL PRESSURE CO2 39.6 mmHg (38.0-50.0); VENOUS PARTIAL PRESSURE O2 176.9 mmHg (30.0-50.0); VENOUS PH 7.362 UNITS (7.330-7.430); VENOUS STANDARD HCO3 21.9 MEQ/L; VENOUS TOTAL CO2 23.2 MEQ/L (24.0-28.0)
[2018-05-08 22:31] LABS: BASO % 0.5 % (0.0-1.0); EOS # 0.1 10^3/uL (0.0-0.50); EOS % 0.6 % (0.0-3.0); HEMATOCRIT 42.3 % (36.0-47.0); HEMOGLOBIN 13.5 g/dl (12.0-15.5); IMMATURE GRANULOCYTE % 1.3 % (0-3.0); LYMPH # 1.6 10^3/uL (1.5-4.5); LYMPH % 19.7 % (24.0-44.0); MEAN CORPUSCULAR HEMOGLOBIN 27.8 pg (27.0-33.0); MEAN CORPUSCULAR HGB CONC 31.9 g/dl (32.0-36.5); MEAN CORPUSCULAR VOLUME 87.2 fl (80.0-96.0); MONO # 0.5 10^3/uL (0.0-0.8); MONO % 6.3 % (0.0-5.0); NEUTROPHILS # 5.9 10^3/uL (1.8-7.7); NEUTROPHILS % 71.6 % (36.0-66.0); PLATELET COUNT, AUTOMATED 213 10^3/uL (150-450); RED BLOOD COUNT 4.85 10^6/uL (4.00-5.40); RED CELL DISTRIBUTION WIDTH 16.1 % (11.5-14.5); WHITE BLOOD COUNT 8.2 10^3/uL (4.0-10.0)
[2018-05-08 22:40] LABS: INR 2.94; PROTHROMBIN TIME 31.3 SECONDS (12.1-14.4)
[2018-05-08 23:01] LABS: LACTIC ACID SEPSIS PROTOCOL 1.9 MMOL/L (0.4-2.0)
[2018-05-08 23:17] LABS: ANION GAP 9 MEQ/L (8-16); BLOOD UREA NITROGEN 26 MG/DL (7-18); CALCIUM LEVEL 8.4 MG/DL (8.8-10.2); CARBON DIOXIDE LEVEL 23 MEQ/L (21-32); CHLORIDE LEVEL 103 MEQ/L (98-107); CPK CREATINE PHOSPHOKINASE 137 U/L (26-192); CREATININE FOR GFR 1.29 MG/DL (0.55-1.30); GLOMERULAR FILTRATION RATE 53.5 (>45); GLUCOSE, FASTING 409 MG/DL (70-100); MB/CK RELATIVE INDEX 1.97 (< OR =4); NT-PRO BNP 5396 PG/ML (<125); POTASSIUM SERUM 4.2 MEQ/L (3.5-5.1); SODIUM LEVEL 135 MEQ/L (136-145); TROPONIN I 0.02 NG/ML (< 0.10)
[2018-05-08] MEDS: HumuLIN R (REGULAR) INSULIN (NovoLIN R) **100U/ML** PER UNIT SC (23:30)
[2018-05-08] MEDS: FUROSEMIDE 40 MG/4 ML VIAL (J1940) IV (23:30)
[2018-05-09] MEDS ORDERED: FUROSEMIDE 40 MG/4 ML VIAL (J1940) IV
[2018-05-09] MEDS ORDERED: ACETAMINOPHEN 650 MG SUPP PR (01:00)
[2018-05-09] MEDS ORDERED: DEXTROSE 50% 50 ML SYRINGE IV (01:15)
[2018-05-09] MEDS ORDERED: GLUCAGON FOR INJ 1 MG VIAL (J1610) SC (01:15)
[2018-05-09] MEDS ORDERED: GLUCOSE 4 GM CHEW TABLET PO (01:15)
[2018-05-09 04:14] LABS: BEDSIDE GLUCOSE 207 MG/DL (80-115)
[2018-05-09 08:10] LABS: BEDSIDE GLUCOSE 121 MG/DL (80-115)
[2018-05-09] MEDS: OMEPRAZOLE 20 MG CAP PO (08:36)
[2018-05-09] MEDS: HumaLOG INSULIN (NovoLOG) PER UNIT SC ×3 (08:36→17:57)
[2018-05-09] MEDS: ASPIRIN 81 MG CHEW TABLET PO (08:36)
[2018-05-09] MEDS: FAMOTIDINE 20 MG TAB PO (08:36)
[2018-05-09] MEDS: amLODIPine 10 MG TAB PO (08:38)
[2018-05-09] MEDS: METOPROLOL TART 50 MG TAB PO ×2 (08:38→20:55)
[2018-05-09] MEDS: FUROSEMIDE 40 MG/4 ML VIAL (J1940) IV (12:00)
[2018-05-09 13:06] LABS: BEDSIDE GLUCOSE 99 MG/DL (80-115)
[2018-05-09 17:01] LABS: BEDSIDE GLUCOSE 251 MG/DL (80-115)
[2018-05-09] MEDS: WARFARIN SOD 3 MG TAB PO (17:56)
[2018-05-09] MEDS: WARFARIN SOD 4 MG TAB PO (17:56)
[2018-05-09] MEDS: IPRATROPIUM 0.5MG/ALBUTEROL 2.5MG INH SOL UD 3ML (DUONEB)(J7620) NEB (20:49)
[2018-05-09] MEDS: PRAVASTATIN 20 MG TAB PO (20:54)
[2018-05-09] MEDS: LEVEMIR (INSULIN DETEMIR) 1 UNITS/0.01ML SC (20:56)
[2018-05-10] MEDS: FUROSEMIDE 40 MG/4 ML VIAL (J1940) IV ×2 (00:37→12:28)
[2018-05-10 07:14] LABS: HEMATOCRIT 41.3 % (36.0-47.0); MEAN CORPUSCULAR HEMOGLOBIN 27.8 pg (27.0-33.0); MEAN CORPUSCULAR HGB CONC 31.5 g/dl (32.0-36.5); MEAN CORPUSCULAR VOLUME 88.4 fl (80.0-96.0); PLATELET COUNT, AUTOMATED 235 10^3/uL (150-450); RED BLOOD COUNT 4.67 10^6/uL (4.00-5.40); WHITE BLOOD COUNT 8.9 10^3/uL (4.0-10.0)
[2018-05-10] MEDS: HumaLOG INSULIN (NovoLOG) PER UNIT SC ×3 (07:30→17:30)
[2018-05-10 07:31] LABS: ANION GAP 4 MEQ/L (8-16); BLOOD UREA NITROGEN 29 MG/DL (7-18); CALCIUM LEVEL 8.6 MG/DL (8.8-10.2); CARBON DIOXIDE LEVEL 31 MEQ/L (21-32); CHLORIDE LEVEL 105 MEQ/L (98-107); CREATININE FOR GFR 1.38 MG/DL (0.55-1.30); GLOMERULAR FILTRATION RATE 49.5 (>45); GLUCOSE, FASTING 90 MG/DL (70-100); POTASSIUM SERUM 3.8 MEQ/L (3.5-5.1); SODIUM LEVEL 140 MEQ/L (136-145)
[2018-05-10] MEDS: FAMOTIDINE 20 MG TAB PO (08:42)
[2018-05-10] MEDS: METOPROLOL TART 50 MG TAB PO ×2 (08:42→21:27)
[2018-05-10] MEDS: amLODIPine 10 MG TAB PO (08:42)
[2018-05-10] MEDS: ASPIRIN 81 MG CHEW TABLET PO (08:42)
[2018-05-10] MEDS: OMEPRAZOLE 20 MG CAP PO (08:42)
[2018-05-10 08:46] LABS: INR 3.13; PROTHROMBIN TIME 32.9 SECONDS (12.1-14.4)
[2018-05-10 11:56] LABS: BEDSIDE GLUCOSE 137 MG/DL (80-115)
[2018-05-10 17:28] LABS: BEDSIDE GLUCOSE 191 MG/DL (80-115)
[2018-05-10 21:23] LABS: BEDSIDE GLUCOSE 238 MG/DL (80-115)
[2018-05-10] MEDS: PRAVASTATIN 20 MG TAB PO (21:27)
[2018-05-10] MEDS: LEVEMIR (INSULIN DETEMIR) 1 UNITS/0.01ML SC (21:27)
[2018-05-11 05:42] LABS: HEMATOCRIT 41.5 % (36.0-47.0); MEAN CORPUSCULAR HGB CONC 31.3 g/dl (32.0-36.5); MEAN CORPUSCULAR VOLUME 86.3 fl (80.0-96.0); PLATELET COUNT, AUTOMATED 241 10^3/uL (150-450); RED BLOOD COUNT 4.81 10^6/uL (4.00-5.40); RED CELL DISTRIBUTION WIDTH 16.6 % (11.5-14.5); WHITE BLOOD COUNT 8.1 10^3/uL (4.0-10.0)
[2018-05-11 06:03] LABS: ANION GAP 7 MEQ/L (8-16); BLOOD UREA NITROGEN 30 MG/DL (7-18); CALCIUM LEVEL 8.7 MG/DL (8.8-10.2); CARBON DIOXIDE LEVEL 29 MEQ/L (21-32); CHLORIDE LEVEL 105 MEQ/L (98-107); CREATININE FOR GFR 1.43 MG/DL (0.55-1.30); GLOMERULAR FILTRATION RATE 47.5 (>45); GLUCOSE, FASTING 78 MG/DL (70-100); POTASSIUM SERUM 3.6 MEQ/L (3.5-5.1); SODIUM LEVEL 141 MEQ/L (136-145)
[2018-05-11] MEDS: HumaLOG INSULIN (NovoLOG) PER UNIT SC (07:30)
[2018-05-11] MEDS ORDERED: FUROSEMIDE 40 MG/4 ML VIAL (J1940) IV (09:00)
[2018-05-11] MEDS: FAMOTIDINE 20 MG TAB PO (09:49)
[2018-05-11] MEDS: amLODIPine 10 MG TAB PO (09:49)
[2018-05-11] MEDS: OMEPRAZOLE 20 MG CAP PO (09:49)
[2018-05-11] MEDS: FUROSEMIDE 40 MG TAB PO (09:49)
[2018-05-11] MEDS: ASPIRIN 81 MG CHEW TABLET PO (09:49)
[2018-05-11] MEDS: METOPROLOL TART 50 MG TAB PO (09:50)
[2018-05-11 10:04] LABS: BEDSIDE GLUCOSE 48 MG/DL (80-115)
[2018-05-11 10:06] LABS: BEDSIDE GLUCOSE 91 MG/DL (80-115)
[2018-05-11 11:25] LABS: BEDSIDE GLUCOSE 175 MG/DL (80-115)
== END 2018-05-11 12:30 | disposition home or self-care (01) | DRG 194 ==
LOC: M ED 21:25 → M ED INP 21:26 → M PCU 05-10 21:41
DX: I11.0 Hypertensive heart disease with heart failure (principal); I27.20 Pulmonary hypertension, unspecified; I48.91 Unspecified atrial fibrillation; I36.0 Nonrheumatic tricuspid (valve) stenosis; Z95.2 Presence of prosthetic heart valve; K21.9 Gastro-esophageal reflux disease without esophagitis; E11.9 Type 2 diabetes mellitus without complications; Z79.899 Other long term (current) drug therapy; Z79.82 Long term (current) use of aspirin; Z79.4 Long term (current) use of insulin; E78.5 Hyperlipidemia, unspecified; I50.31 Acute diastolic (congestive) heart failure

== ENCOUNTER 2018-05-15 12:37 | Inpatient (IN) | payer OTHER ==
[2018-05-15 13:11] LABS: BASO % 0.3 % (0.0-1.0); EOS % 0.2 % (0.0-3.0); HEMATOCRIT 43.7 % (36.0-47.0); HEMOGLOBIN 13.9 g/dl (12.0-15.5); IMMATURE GRANULOCYTE % 0.7 % (0-3.0); LYMPH # 2.1 10^3/uL (1.5-4.5); MEAN CORPUSCULAR HEMOGLOBIN 27.3 pg (27.0-33.0); MEAN CORPUSCULAR HGB CONC 31.8 g/dl (32.0-36.5); MEAN CORPUSCULAR VOLUME 85.7 fl (80.0-96.0); MONO # 0.7 10^3/uL (0.0-0.8); MONO % 6.1 % (0.0-5.0); NEUTROPHILS # 9.1 10^3/uL (1.8-7.7); NEUTROPHILS % 75.7 % (36.0-66.0); PLATELET COUNT, AUTOMATED 274 10^3/uL (150-450); RED CELL DISTRIBUTION WIDTH 17.1 % (11.5-14.5); WHITE BLOOD COUNT 12.1 10^3/uL (4.0-10.0)
[2018-05-15] MEDS: IPRATROPIUM 0.5MG/ALBUTEROL 2.5MG INH SOL UD 3ML (DUONEB)(J7620) NEB ×2 (14:58→22:01)
[2018-05-15 15:02] LABS: ABG HCO3 27.2 MEQ/L (22.0-26.0); ABG O2 SATURATION 90.3 % (95.0-99.0); ABG PARTIAL PRESSURE O2 59.7 mmHg (75.0-100.0); ABG TOTAL CO2 28.4 MEQ/L (23.0-31.0)
[2018-05-15 15:11] LABS: ALBUMIN 3.1 GM/DL (3.2-5.2); ALBUMIN/GLOBULIN RATIO 0.86 (1.00-1.93); ALKALINE PHOSPHATASE 119 U/L (45-117); ALT/SGPT 33 U/L (12-78); ANION GAP 9 MEQ/L (8-16); AST/SGOT 35 U/L (7-37); BILIRUBIN,DIRECT 0.6 MG/DL (0.0-0.2); BILIRUBIN,TOTAL 1.6 MG/DL (0.2-1.0); BLOOD UREA NITROGEN 34 MG/DL (7-18); CALCIUM LEVEL 9.5 MG/DL (8.8-10.2); CARBON DIOXIDE LEVEL 30 MEQ/L (21-32); CHLORIDE LEVEL 98 MEQ/L (98-107); CPK CREATINE PHOSPHOKINASE 169 U/L (26-192); CREATININE FOR GFR 1.52 MG/DL (0.55-1.30); GLOMERULAR FILTRATION RATE 44.3 (>45); GLUCOSE, FASTING 324 MG/DL (70-100); MB/CK RELATIVE INDEX 1.72 (< OR =4); NT-PRO BNP 8025 PG/ML (<125); POTASSIUM SERUM 5.2 MEQ/L (3.5-5.1); SODIUM LEVEL 137 MEQ/L (136-145); TOTAL PROTEIN 6.7 GM/DL (6.4-8.2); TROPONIN I 0.02 NG/ML (< 0.10)
[2018-05-15] MEDS: FUROSEMIDE 100 MG/10 ML VIAL (J1940) IV (16:23)
[2018-05-15] MEDS: HumaLOG INSULIN (NovoLOG) PER UNIT SC ×2 (16:23→21:00)
[2018-05-15 17:26] LABS: C REACTIVE PROTEIN QUANTITATIV 1.93 MG/DL (0.00-0.30)
[2018-05-15 17:38] LABS: ESTIMATED AVERAGE GLUCOSE 240 MG/DL (60-110)
[2018-05-15 17:39] LABS: INR 2.98; PROTHROMBIN TIME 31.6 SECONDS (12.1-14.4)
[2018-05-15] MEDS ORDERED: ONDANSETRON 4MG/2ML VIAL (J2405) IV (18:00)
[2018-05-15] MEDS ORDERED: GLUCAGON FOR INJ 1 MG VIAL (J1610) SC (18:00)
[2018-05-15] MEDS ORDERED: DEXTROSE 50% 50 ML SYRINGE IV (18:00)
[2018-05-15] MEDS ORDERED: GLUCOSE 4 GM CHEW TABLET PO (18:00)
[2018-05-15 20:26] LABS: CPK CREATINE PHOSPHOKINASE 179 U/L (26-192); MB/CK RELATIVE INDEX 1.34 (< OR =4); TROPONIN I < 0.02 NG/ML (< 0.10)
[2018-05-15 20:39] LABS: BEDSIDE GLUCOSE 258 MG/DL (80-115)
[2018-05-15 21:02] LABS: OSMOLALITY URINE 386 MOSM/KG (500-800)
[2018-05-15 21:14] LABS: CHLORIDE,RANDOM URINE 92 MEQ/L; SODIUM,RANDOM URINE 57 MEQ/L; TOTAL PROTEIN,RANDOM URINE 56.1 MG/DL (0.0-12.0)
[2018-05-15 21:17] LABS: APPEARANCE, URINE CLEAR (CLEAR); BACTERIA, URINE AUTO NEGATIVE (NEGATIVE); BILIRUBIN, URINE AUTO NEGATIVE (NEGATIVE); BLOOD, URINE BLOOD NEGATIVE (NEGATIVE); COLOR, URINE YELLOW (YELLOW); GLUCOSE, URINE (UA) AUTO NEGATIVE (NEGATIVE); KETONE, URINE AUTO NEGATIVE (NEGATIVE); LEUKOCYTE ESTERASE, URINE AUTO NEGATIVE (NEGATIVE); MUCUS, URINE SMALL (NEGATIVE); NITRITE, URINE AUTO NEGATIVE (NEGATIVE); PROTEIN, URINE AUTO 2+ mg/dL (NEGATIVE); RBC, URINE AUTO 1 /HPF (0-3); SQUAMOUS EPITHELIAL CELL UR AU 1 /HPF (0-6); UROBILINOGEN, URINE AUTO 0.2 mg/dL (0.0-2.0); WBC, URINE AUTO 1 /HPF (0-3)
[2018-05-15] MEDS: WARFARIN SOD 3 MG TAB PO (22:01)
[2018-05-15] MEDS: PRAVASTATIN 20 MG TAB PO (22:01)
[2018-05-15] MEDS: METOPROLOL TART 50 MG TAB PO (22:02)
[2018-05-15] MEDS: SENOKOT S TAB PO (22:02)
[2018-05-15] MEDS: LEVEMIR (INSULIN DETEMIR) 1 UNITS/0.01ML SC (22:02)
[2018-05-15 23:26] LABS: CPK CREATINE PHOSPHOKINASE 158 U/L (26-192); MB/CK RELATIVE INDEX 1.33 (< OR =4); TROPONIN I 0.02 NG/ML (< 0.10)
[2018-05-16] MEDS: FUROSEMIDE 40 MG/4 ML VIAL (J1940) IV ×4 (00:03→17:19)
[2018-05-16] MEDS: IPRATROPIUM 0.5MG/ALBUTEROL 2.5MG INH SOL UD 3ML (DUONEB)(J7620) NEB ×4 (01:09→19:48)
[2018-05-16 05:59] LABS: HEMATOCRIT 42.7 % (36.0-47.0); HEMOGLOBIN 13.5 g/dl (12.0-15.5); MEAN CORPUSCULAR HEMOGLOBIN 27.2 pg (27.0-33.0); MEAN CORPUSCULAR HGB CONC 31.6 g/dl (32.0-36.5); MEAN CORPUSCULAR VOLUME 86.1 fl (80.0-96.0); PLATELET COUNT, AUTOMATED 291 10^3/uL (150-450); RED BLOOD COUNT 4.96 10^6/uL (4.00-5.40); RED CELL DISTRIBUTION WIDTH 16.8 % (11.5-14.5); WHITE BLOOD COUNT 11.2 10^3/uL (4.0-10.0)
[2018-05-16 06:16] LABS: INR 2.42; PROTHROMBIN TIME 26.8 SECONDS (12.1-14.4)
[2018-05-16 06:26] LABS: ALBUMIN 2.9 GM/DL (3.2-5.2); ALBUMIN/GLOBULIN RATIO 0.71 (1.00-1.93); ALKALINE PHOSPHATASE 114 U/L (45-117); ALT/SGPT 35 U/L (12-78); ANION GAP 8 MEQ/L (8-16); AST/SGOT 47 U/L (7-37); BILIRUBIN,TOTAL 1.2 MG/DL (0.2-1.0); BLOOD UREA NITROGEN 34 MG/DL (7-18); CALCIUM LEVEL 9.2 MG/DL (8.8-10.2); CARBON DIOXIDE LEVEL 31 MEQ/L (21-32); CHLORIDE LEVEL 100 MEQ/L (98-107); CREATININE FOR GFR 1.49 MG/DL (0.55-1.30); GLOMERULAR FILTRATION RATE 45.3 (>45); GLUCOSE, FASTING 105 MG/DL (70-100); POTASSIUM SERUM 3.7 MEQ/L (3.5-5.1); SODIUM LEVEL 139 MEQ/L (136-145)
[2018-05-16] MEDS: POTASSIUM CHLORIDE 10 MEQ SR TABLET PO (07:49)
[2018-05-16] MEDS: HumaLOG INSULIN (NovoLOG) PER UNIT SC ×4 (07:50→20:21)
[2018-05-16] MEDS: OMEPRAZOLE 20 MG CAP PO (09:21)
[2018-05-16] MEDS: SENOKOT S TAB PO ×2 (09:22→20:21)
[2018-05-16] MEDS: SPIRONOLACTONE 25 MG TAB PO (09:22)
[2018-05-16] MEDS: METOPROLOL TART 50 MG TAB PO ×2 (09:22→20:21)
[2018-05-16] MEDS: FAMOTIDINE 20 MG TAB PO (09:23)
[2018-05-16] MEDS: ASPIRIN 81 MG ENTERIC TAB PO (09:23)
[2018-05-16] MEDS ORDERED: SLF 3 ML SYR IV (12:00)
[2018-05-16 12:11] LABS: BEDSIDE GLUCOSE 240 MG/DL (80-115)
[2018-05-16] MEDS: SLF 3 ML SYR IV ×2 (14:00→20:21)
[2018-05-16 16:42] LABS: BEDSIDE GLUCOSE 216 MG/DL (80-115)
[2018-05-16] MEDS: WARFARIN SOD 3 MG TAB PO (17:19)
[2018-05-16 20:17] LABS: BEDSIDE GLUCOSE 125 MG/DL (80-115)
[2018-05-16] MEDS: PRAVASTATIN 20 MG TAB PO (20:21)
[2018-05-16] MEDS: LEVEMIR (INSULIN DETEMIR) 1 UNITS/0.01ML SC (20:22)
[2018-05-17] MEDS: MYCOLOG CREAM 15 GM (NYSTATIN/TRIAMCINOLONE) TOP ×3 (00:05→21:14)
[2018-05-17] MEDS: FUROSEMIDE 40 MG/4 ML VIAL (J1940) IV ×2 (00:05→05:57)
[2018-05-17] MEDS: IPRATROPIUM 0.5MG/ALBUTEROL 2.5MG INH SOL UD 3ML (DUONEB)(J7620) NEB ×4 (01:40→20:35)
[2018-05-17 05:58] LABS: HEMATOCRIT 42.3 % (36.0-47.0); HEMOGLOBIN 13.3 g/dl (12.0-15.5); MEAN CORPUSCULAR HEMOGLOBIN 26.4 pg (27.0-33.0); MEAN CORPUSCULAR HGB CONC 31.4 g/dl (32.0-36.5); MEAN CORPUSCULAR VOLUME 84.1 fl (80.0-96.0); PLATELET COUNT, AUTOMATED 298 10^3/uL (150-450); RED BLOOD COUNT 5.03 10^6/uL (4.00-5.40); RED CELL DISTRIBUTION WIDTH 17.2 % (11.5-14.5); WHITE BLOOD COUNT 9.5 10^3/uL (4.0-10.0)
[2018-05-17] MEDS: SLF 3 ML SYR IV ×3 (06:00→21:14)
[2018-05-17 06:20] LABS: ALBUMIN 2.9 GM/DL (3.2-5.2); ALBUMIN/GLOBULIN RATIO 0.78 (1.00-1.93); ALKALINE PHOSPHATASE 114 U/L (45-117); ALT/SGPT 83 U/L (12-78); ANION GAP 9 MEQ/L (8-16); AST/SGOT 116 U/L (7-37); BLOOD UREA NITROGEN 41 MG/DL (7-18); CALCIUM LEVEL 8.7 MG/DL (8.8-10.2); CARBON DIOXIDE LEVEL 29 MEQ/L (21-32); CHLORIDE LEVEL 102 MEQ/L (98-107); CREATININE FOR GFR 1.72 MG/DL (0.55-1.30); GLOMERULAR FILTRATION RATE 38.4 (>45); GLUCOSE, FASTING 58 MG/DL (70-100); MAGNESIUM LEVEL 1.9 MG/DL (1.8-2.4); POTASSIUM SERUM 3.8 MEQ/L (3.5-5.1); SODIUM LEVEL 140 MEQ/L (136-145); TOTAL PROTEIN 6.6 GM/DL (6.4-8.2)
[2018-05-17 06:21] LABS: INR 2.64; PROTHROMBIN TIME 28.7 SECONDS (12.1-14.4)
[2018-05-17 06:55] LABS: BEDSIDE GLUCOSE 59 MG/DL (80-115)
[2018-05-17 07:37] LABS: BEDSIDE GLUCOSE 122 MG/DL (80-115)
[2018-05-17] MEDS: SENOKOT S TAB PO ×2 (09:00→21:13)
[2018-05-17] MEDS: HumaLOG INSULIN (NovoLOG) PER UNIT SC ×4 (09:12→21:00)
[2018-05-17] MEDS: SPIRONOLACTONE 25 MG TAB PO (09:13)
[2018-05-17] MEDS: OMEPRAZOLE 20 MG CAP PO (09:13)
[2018-05-17] MEDS: ASPIRIN 81 MG ENTERIC TAB PO (09:14)
[2018-05-17] MEDS: METOPROLOL TARTRATE 100 MG TAB PO ×2 (09:14→21:16)
[2018-05-17] MEDS: FAMOTIDINE 20 MG TAB PO (09:14)
[2018-05-17 11:57] LABS: BEDSIDE GLUCOSE 158 MG/DL (80-115)
[2018-05-17] MEDS: FUROSEMIDE 100 MG/10 ML VIAL (J1940) IV (16:06)
[2018-05-17 16:25] LABS: BEDSIDE GLUCOSE 214 MG/DL (80-115)
[2018-05-17] MEDS: WARFARIN SOD 3 MG TAB PO (17:15)
[2018-05-17 20:41] LABS: BEDSIDE GLUCOSE 140 MG/DL (80-115)
[2018-05-17] MEDS ORDERED: FUROSEMIDE 40 MG/4 ML VIAL (J1940) IV (21:00)
[2018-05-17] MEDS: PRAVASTATIN 20 MG TAB PO (21:13)
[2018-05-17] MEDS: LEVEMIR (INSULIN DETEMIR) 1 UNITS/0.01ML SC (21:13)
[2018-05-18] MEDS: FUROSEMIDE 100 MG/10 ML VIAL (J1940) IV ×3 (00:53→15:13)
[2018-05-18] MEDS: IPRATROPIUM 0.5MG/ALBUTEROL 2.5MG INH SOL UD 3ML (DUONEB)(J7620) NEB ×3 (02:00→19:42)
[2018-05-18] MEDS: SLF 3 ML SYR IV ×3 (05:10→22:00)
[2018-05-18 05:39] LABS: HEMATOCRIT 43.3 % (36.0-47.0); HEMOGLOBIN 13.9 g/dl (12.0-15.5); MEAN CORPUSCULAR HEMOGLOBIN 27.1 pg (27.0-33.0); MEAN CORPUSCULAR HGB CONC 32.1 g/dl (32.0-36.5); MEAN CORPUSCULAR VOLUME 84.6 fl (80.0-96.0); PLATELET COUNT, AUTOMATED 317 10^3/uL (150-450); RED BLOOD COUNT 5.12 10^6/uL (4.00-5.40); WHITE BLOOD COUNT 9.6 10^3/uL (4.0-10.0)
[2018-05-18 05:56] LABS: INR 3.25; PROTHROMBIN TIME 33.9 SECONDS (12.1-14.4)
[2018-05-18 06:03] LABS: ALBUMIN 2.9 GM/DL (3.2-5.2); ALBUMIN/GLOBULIN RATIO 0.69 (1.00-1.93); ALKALINE PHOSPHATASE 137 U/L (45-117); ALT/SGPT 132 U/L (12-78); ANION GAP 8 MEQ/L (8-16); AST/SGOT 171 U/L (7-37); BLOOD UREA NITROGEN 44 MG/DL (7-18); CALCIUM LEVEL 9.3 MG/DL (8.8-10.2); CARBON DIOXIDE LEVEL 29 MEQ/L (21-32); CHLORIDE LEVEL 101 MEQ/L (98-107); CREATININE FOR GFR 1.74 MG/DL (0.55-1.30); GLOMERULAR FILTRATION RATE 37.9 (>45); GLUCOSE, FASTING 109 MG/DL (70-100); MAGNESIUM LEVEL 2.1 MG/DL (1.8-2.4); POTASSIUM SERUM 4.1 MEQ/L (3.5-5.1); SODIUM LEVEL 138 MEQ/L (136-145); TOTAL PROTEIN 7.1 GM/DL (6.4-8.2)
[2018-05-18 08:04] LABS: GAMMA GLUTAMYLTRANSPEPTIDASE 87 U/L (5-55)
[2018-05-18] MEDS: HumaLOG INSULIN (NovoLOG) PER UNIT SC ×4 (08:36→21:00)
[2018-05-18] MEDS: ASPIRIN 81 MG ENTERIC TAB PO (08:37)
[2018-05-18] MEDS: FAMOTIDINE 20 MG TAB PO (08:37)
[2018-05-18] MEDS: OMEPRAZOLE 20 MG CAP PO (08:37)
[2018-05-18] MEDS: METOPROLOL TARTRATE 100 MG TAB PO ×2 (08:37→20:22)
[2018-05-18] MEDS: SPIRONOLACTONE 25 MG TAB PO (08:37)
[2018-05-18] MEDS: MYCOLOG CREAM 15 GM (NYSTATIN/TRIAMCINOLONE) TOP ×2 (08:38→20:24)
[2018-05-18] MEDS: SENOKOT S TAB PO ×2 (08:38→20:22)
[2018-05-18 11:04] LABS: HEPATITIS B SURFACE ANTIGEN NEGATIVE (NEGATIVE)
[2018-05-18 11:28] LABS: HEPATITIS C VIRUS ABY INDEX 0.1 INDEX (<0.8)
[2018-05-18 11:29] LABS: HEPATITIS B CORE ANTIBODY IGM NEGATIVE (NEGATIVE)
[2018-05-18 11:30] LABS: HEPATITIS A ANTIBODY IGM NEGATIVE (NEGATIVE)
[2018-05-18 11:38] LABS: BEDSIDE GLUCOSE 94 MG/DL (80-115)
[2018-05-18 16:56] LABS: BEDSIDE GLUCOSE 111 MG/DL (80-115)
[2018-05-18 20:12] LABS: BEDSIDE GLUCOSE 235 MG/DL (80-115)
[2018-05-18] MEDS: PRAVASTATIN 20 MG TAB PO (20:22)
[2018-05-18] MEDS: LEVEMIR (INSULIN DETEMIR) 1 UNITS/0.01ML SC (20:29)
[2018-05-19] MEDS: IPRATROPIUM 0.5MG/ALBUTEROL 2.5MG INH SOL UD 3ML (DUONEB)(J7620) NEB ×4 (01:01→20:15)
[2018-05-19 05:35] LABS: HEMATOCRIT 42.3 % (36.0-47.0); HEMOGLOBIN 13.7 g/dl (12.0-15.5); MEAN CORPUSCULAR HEMOGLOBIN 26.9 pg (27.0-33.0); MEAN CORPUSCULAR HGB CONC 32.4 g/dl (32.0-36.5); MEAN CORPUSCULAR VOLUME 82.9 fl (80.0-96.0); PLATELET COUNT, AUTOMATED 317 10^3/uL (150-450); RED CELL DISTRIBUTION WIDTH 16.6 % (11.5-14.5); WHITE BLOOD COUNT 8.4 10^3/uL (4.0-10.0)
[2018-05-19 05:45] LABS: INR 2.99; PROTHROMBIN TIME 31.7 SECONDS (12.1-14.4)
[2018-05-19] MEDS: SLF 3 ML SYR IV ×3 (06:00→21:45)
[2018-05-19 06:07] LABS: ALBUMIN 2.9 GM/DL (3.2-5.2); ALBUMIN/GLOBULIN RATIO 0.74 (1.00-1.93); ALKALINE PHOSPHATASE 145 U/L (45-117); ALT/SGPT 150 U/L (12-78); ANION GAP 7 MEQ/L (8-16); AST/SGOT 154 U/L (7-37); BILIRUBIN,TOTAL 1.1 MG/DL (0.2-1.0); BLOOD UREA NITROGEN 45 MG/DL (7-18); CALCIUM LEVEL 9.1 MG/DL (8.8-10.2); CARBON DIOXIDE LEVEL 32 MEQ/L (21-32); CHLORIDE LEVEL 99 MEQ/L (98-107); CREATININE FOR GFR 1.72 MG/DL (0.55-1.30); GLOMERULAR FILTRATION RATE 38.4 (>45); GLUCOSE, FASTING 146 MG/DL (70-100); MAGNESIUM LEVEL 2.1 MG/DL (1.8-2.4); POTASSIUM SERUM 3.4 MEQ/L (3.5-5.1); SODIUM LEVEL 138 MEQ/L (136-145); TOTAL PROTEIN 6.8 GM/DL (6.4-8.2)
[2018-05-19] MEDS: HumaLOG INSULIN (NovoLOG) PER UNIT SC ×4 (08:43→21:00)
[2018-05-19] MEDS: FUROSEMIDE 100 MG/10 ML VIAL (J1940) IV ×3 (08:43→16:53)
[2018-05-19] MEDS: OMEPRAZOLE 20 MG CAP PO (08:44)
[2018-05-19] MEDS: SPIRONOLACTONE 25 MG TAB PO (08:44)
[2018-05-19] MEDS: ASPIRIN 81 MG ENTERIC TAB PO (08:44)
[2018-05-19] MEDS: FAMOTIDINE 20 MG TAB PO (08:44)
[2018-05-19] MEDS: POTASSIUM CHLORIDE 10 MEQ SR TABLET PO (08:44)
[2018-05-19] MEDS: METOPROLOL TARTRATE 100 MG TAB PO ×2 (08:44→21:42)
[2018-05-19] MEDS: MYCOLOG CREAM 15 GM (NYSTATIN/TRIAMCINOLONE) TOP ×2 (08:45→21:44)
[2018-05-19] MEDS: SENOKOT S TAB PO ×2 (08:45→21:42)
[2018-05-19 11:55] LABS: BEDSIDE GLUCOSE 170 MG/DL (80-115)
[2018-05-19] MEDS: WARFARIN SOD 5 MG TAB PO (16:53)
[2018-05-19 17:04] LABS: BEDSIDE GLUCOSE 241 MG/DL (80-115)
[2018-05-19 21:18] LABS: BEDSIDE GLUCOSE 169 MG/DL (80-115)
[2018-05-19] MEDS: PRAVASTATIN 20 MG TAB PO (21:42)
[2018-05-19] MEDS: LEVEMIR (INSULIN DETEMIR) 1 UNITS/0.01ML SC (21:43)
[2018-05-20] MEDS: FUROSEMIDE 100 MG/10 ML VIAL (J1940) IV ×3 (00:33→17:58)
[2018-05-20] MEDS: IPRATROPIUM 0.5MG/ALBUTEROL 2.5MG INH SOL UD 3ML (DUONEB)(J7620) NEB ×4 (01:22→20:41)
[2018-05-20 05:35] LABS: HEMATOCRIT 43.1 % (36.0-47.0); HEMOGLOBIN 13.9 g/dl (12.0-15.5); MEAN CORPUSCULAR HEMOGLOBIN 26.6 pg (27.0-33.0); MEAN CORPUSCULAR HGB CONC 32.3 g/dl (32.0-36.5); MEAN CORPUSCULAR VOLUME 82.6 fl (80.0-96.0); PLATELET COUNT, AUTOMATED 289 10^3/uL (150-450); RED BLOOD COUNT 5.22 10^6/uL (4.00-5.40); RED CELL DISTRIBUTION WIDTH 16.7 % (11.5-14.5); WHITE BLOOD COUNT 7.7 10^3/uL (4.0-10.0)
[2018-05-20 05:46] LABS: INR 3.09; PROTHROMBIN TIME 32.6 SECONDS (12.1-14.4)
[2018-05-20] MEDS: SLF 3 ML SYR IV ×3 (05:49→21:34)
[2018-05-20 06:05] LABS: ALBUMIN 2.8 GM/DL (3.2-5.2); ALBUMIN/GLOBULIN RATIO 0.74 (1.00-1.93); ALKALINE PHOSPHATASE 139 U/L (45-117); ALT/SGPT 145 U/L (12-78); ANION GAP 8 MEQ/L (8-16); AST/SGOT 127 U/L (7-37); BILIRUBIN,TOTAL 1.1 MG/DL (0.2-1.0); BLOOD UREA NITROGEN 47 MG/DL (7-18); CALCIUM LEVEL 8.4 MG/DL (8.8-10.2); CARBON DIOXIDE LEVEL 30 MEQ/L (21-32); CHLORIDE LEVEL 103 MEQ/L (98-107); CREATININE FOR GFR 1.79 MG/DL (0.55-1.30); GLOMERULAR FILTRATION RATE 36.7 (>45); GLUCOSE, FASTING 60 MG/DL (70-100); POTASSIUM SERUM 3.5 MEQ/L (3.5-5.1); SODIUM LEVEL 141 MEQ/L (136-145); TOTAL PROTEIN 6.6 GM/DL (6.4-8.2)
[2018-05-20] MEDS: HumaLOG INSULIN (NovoLOG) PER UNIT SC ×4 (07:19→21:00)
[2018-05-20 09:13] LABS: BEDSIDE GLUCOSE 106 MG/DL (80-115)
[2018-05-20] MEDS: SENOKOT S TAB PO ×2 (09:38→21:29)
[2018-05-20] MEDS: FAMOTIDINE 20 MG TAB PO (09:39)
[2018-05-20] MEDS: OMEPRAZOLE 20 MG CAP PO (09:39)
[2018-05-20] MEDS: SPIRONOLACTONE 25 MG TAB PO (09:40)
[2018-05-20] MEDS: METOPROLOL TARTRATE 100 MG TAB PO ×2 (09:40→21:29)
[2018-05-20] MEDS: MYCOLOG CREAM 15 GM (NYSTATIN/TRIAMCINOLONE) TOP ×2 (09:41→21:31)
[2018-05-20] MEDS: POTASSIUM CHLORIDE 10 MEQ SR TABLET PO (10:09)
[2018-05-20 13:28] LABS: BEDSIDE GLUCOSE 241 MG/DL (80-115)
[2018-05-20 17:48] LABS: BEDSIDE GLUCOSE 193 MG/DL (80-115)
[2018-05-20] MEDS: WARFARIN SOD 4 MG TAB PO (17:58)
[2018-05-20 21:27] LABS: BEDSIDE GLUCOSE 81 MG/DL (80-115)
[2018-05-20] MEDS: PRAVASTATIN 20 MG TAB PO (21:28)
[2018-05-20] MEDS: LEVEMIR (INSULIN DETEMIR) 1 UNITS/0.01ML SC (21:30)
[2018-05-21] MEDS: FUROSEMIDE 100 MG/10 ML VIAL (J1940) IV ×4 (00:49→23:56)
[2018-05-21] MEDS: IPRATROPIUM 0.5MG/ALBUTEROL 2.5MG INH SOL UD 3ML (DUONEB)(J7620) NEB ×4 (01:19→20:00)
[2018-05-21] MEDS: SLF 3 ML SYR IV ×3 (05:49→20:54)
[2018-05-21 06:36] LABS: HEMATOCRIT 44.2 % (36.0-47.0); HEMOGLOBIN 14.4 g/dl (12.0-15.5); MEAN CORPUSCULAR HEMOGLOBIN 26.7 pg (27.0-33.0); MEAN CORPUSCULAR HGB CONC 32.6 g/dl (32.0-36.5); PLATELET COUNT, AUTOMATED 297 10^3/uL (150-450); RED BLOOD COUNT 5.39 10^6/uL (4.00-5.40); RED CELL DISTRIBUTION WIDTH 17.2 % (11.5-14.5); WHITE BLOOD COUNT 8.2 10^3/uL (4.0-10.0)
[2018-05-21 06:51] LABS: INR 2.48; PROTHROMBIN TIME 27.4 SECONDS (12.1-14.4)
[2018-05-21 07:04] LABS: ALBUMIN 2.7 GM/DL (3.2-5.2); ALBUMIN/GLOBULIN RATIO 0.63 (1.00-1.93); ALKALINE PHOSPHATASE 141 U/L (45-117); ALT/SGPT 126 U/L (12-78); ANION GAP 8 MEQ/L (8-16); AST/SGOT 90 U/L (7-37); BILIRUBIN,TOTAL 1.1 MG/DL (0.2-1.0); BLOOD UREA NITROGEN 39 MG/DL (7-18); CALCIUM LEVEL 8.6 MG/DL (8.8-10.2); CARBON DIOXIDE LEVEL 29 MEQ/L (21-32); CHLORIDE LEVEL 102 MEQ/L (98-107); CREATININE FOR GFR 1.79 MG/DL (0.55-1.30); GLOMERULAR FILTRATION RATE 36.7 (>45); GLUCOSE, FASTING 109 MG/DL (70-100); POTASSIUM SERUM 3.9 MEQ/L (3.5-5.1); SODIUM LEVEL 139 MEQ/L (136-145)
[2018-05-21] MEDS: OMEPRAZOLE 20 MG CAP PO (08:54)
[2018-05-21] MEDS: HumaLOG INSULIN (NovoLOG) PER UNIT SC ×4 (08:54→20:53)
[2018-05-21] MEDS: SENOKOT S TAB PO ×2 (08:55→20:53)
[2018-05-21] MEDS: FAMOTIDINE 20 MG TAB PO (08:55)
[2018-05-21] MEDS: SPIRONOLACTONE 25 MG TAB PO (08:55)
[2018-05-21] MEDS: METOPROLOL TARTRATE 100 MG TAB PO ×2 (08:55→20:53)
[2018-05-21] MEDS: MYCOLOG CREAM 15 GM (NYSTATIN/TRIAMCINOLONE) TOP ×2 (08:56→20:54)
[2018-05-21 11:43] LABS: BEDSIDE GLUCOSE 149 MG/DL (80-115)
[2018-05-21] MEDS: WARFARIN SOD 4 MG TAB PO (16:53)
[2018-05-21 16:59] LABS: BEDSIDE GLUCOSE 129 MG/DL (80-115)
[2018-05-21 20:43] LABS: BEDSIDE GLUCOSE 105 MG/DL (80-115)
[2018-05-21] MEDS: PRAVASTATIN 20 MG TAB PO (20:52)
[2018-05-21] MEDS: LEVEMIR (INSULIN DETEMIR) 1 UNITS/0.01ML SC (20:53)
[2018-05-22] MEDS: IPRATROPIUM 0.5MG/ALBUTEROL 2.5MG INH SOL UD 3ML (DUONEB)(J7620) NEB ×3 (01:05→07:35)
[2018-05-22] MEDS: SLF 3 ML SYR IV (05:25)
[2018-05-22 05:36] LABS: HEMATOCRIT 44.2 % (36.0-47.0); MEAN CORPUSCULAR HEMOGLOBIN 26.6 pg (27.0-33.0); MEAN CORPUSCULAR HGB CONC 31.7 g/dl (32.0-36.5); MEAN CORPUSCULAR VOLUME 83.9 fl (80.0-96.0); PLATELET COUNT, AUTOMATED 320 10^3/uL (150-450); RED BLOOD COUNT 5.27 10^6/uL (4.00-5.40); RED CELL DISTRIBUTION WIDTH 16.8 % (11.5-14.5); WHITE BLOOD COUNT 7.6 10^3/uL (4.0-10.0)
[2018-05-22 05:50] LABS: INR 2.14; PROTHROMBIN TIME 24.3 SECONDS (12.1-14.4)
[2018-05-22 05:53] LABS: ALBUMIN 2.6 GM/DL (3.2-5.2); ALBUMIN/GLOBULIN RATIO 0.68 (1.00-1.93); ALKALINE PHOSPHATASE 129 U/L (45-117); ALT/SGPT 104 U/L (12-78); ANION GAP 6 MEQ/L (8-16); AST/SGOT 68 U/L (7-37); BILIRUBIN,TOTAL 0.9 MG/DL (0.2-1.0); BLOOD UREA NITROGEN 35 MG/DL (7-18); CALCIUM LEVEL 8.5 MG/DL (8.8-10.2); CARBON DIOXIDE LEVEL 31 MEQ/L (21-32); CHLORIDE LEVEL 100 MEQ/L (98-107); CREATININE FOR GFR 1.72 MG/DL (0.55-1.30); GLOMERULAR FILTRATION RATE 38.4 (>45); GLUCOSE, FASTING 183 MG/DL (70-100); POTASSIUM SERUM 3.9 MEQ/L (3.5-5.1); SODIUM LEVEL 137 MEQ/L (136-145); TOTAL PROTEIN 6.4 GM/DL (6.4-8.2)
[2018-05-22] MEDS: HumaLOG INSULIN (NovoLOG) PER UNIT SC (07:58)
[2018-05-22] MEDS: FUROSEMIDE 100 MG/10 ML VIAL (J1940) IV (07:58)
[2018-05-22] MEDS: OMEPRAZOLE 20 MG CAP PO (07:59)
[2018-05-22] MEDS: FAMOTIDINE 20 MG TAB PO (07:59)
[2018-05-22] MEDS: METOPROLOL TARTRATE 100 MG TAB PO (07:59)
[2018-05-22] MEDS: SENOKOT S TAB PO (07:59)
[2018-05-22] MEDS: MYCOLOG CREAM 15 GM (NYSTATIN/TRIAMCINOLONE) TOP (08:00)
[2018-05-22] MEDS: SPIRONOLACTONE 25 MG TAB PO (08:00)
[2018-05-22] MEDS ORDERED: WARFARIN SOD 5 MG TAB PO (17:00)
== END 2018-05-22 11:50 | disposition home or self-care (01) | DRG 194 ==
LOC: M ED 12:37 → M ED INP 18:00 → M PCU 20:18
DX: I13.0 Hypertensive heart and chronic kidney disease with heart failure and stage 1 through stage 4 chronic kidney disease, or unspecified chronic kidney disease (principal); K75.81 Nonalcoholic steatohepatitis (NASH); E11.649 Type 2 diabetes mellitus with hypoglycemia without coma; Z68.41 Body mass index [BMI] 40.0-44.9, adult; I48.3 Typical atrial flutter; I48.91 Unspecified atrial fibrillation; E66.01 Morbid (severe) obesity due to excess calories; Z79.01 Long term (current) use of anticoagulants; Z95.2 Presence of prosthetic heart valve; R74.0 Nonspecific elevation of levels of transaminase and lactic acid dehydrogenase [LDH]; I34.0 Nonrheumatic mitral (valve) insufficiency; E78.5 Hyperlipidemia, unspecified; K21.9 Gastro-esophageal reflux disease without esophagitis; Z79.4 Long term (current) use of insulin; Z79.899 Other long term (current) drug therapy; N18.9 Chronic kidney disease, unspecified; Z91.19 Patient's noncompliance with other medical treatment and regimen; I50.33 Acute on chronic diastolic (congestive) heart failure; I50.811 Acute right heart failure

== ENCOUNTER → 2018-05-30 | Outpatient (REF) | payer OTHER ==
[2018-05-30 11:50] LABS: ESTIMATED AVERAGE GLUCOSE 243 MG/DL (60-110); HEMOGLOBIN A1c 10.1 %
[2018-05-30 12:11] LABS: ALBUMIN 3.1 GM/DL (3.2-5.2); ALBUMIN/GLOBULIN RATIO 0.78 (1.00-1.93); ALKALINE PHOSPHATASE 142 U/L (45-117); ALT/SGPT 41 U/L (12-78); ANION GAP 10 MEQ/L (8-16); AST/SGOT 32 U/L (7-37); BILIRUBIN,TOTAL 1.3 MG/DL (0.2-1.0); BLOOD UREA NITROGEN 33 MG/DL (7-18); CARBON DIOXIDE LEVEL 30 MEQ/L (21-32); CHLORIDE LEVEL 100 MEQ/L (98-107); CREATININE FOR GFR 1.88 MG/DL (0.55-1.30); GLOMERULAR FILTRATION RATE 34.6 (>45); GLUCOSE, FASTING 150 MG/DL (70-100); POTASSIUM SERUM 5.3 MEQ/L (3.5-5.1); SODIUM LEVEL 140 MEQ/L (136-145); TOTAL PROTEIN 7.1 GM/DL (6.4-8.2)
== END ==
LOC: M SFHCLERA 08:45
DX: R94.5 Abnormal results of liver function studies (principal); E11.22 Type 2 diabetes mellitus with diabetic chronic kidney disease

== ENCOUNTER → 2018-05-30 | Outpatient (CLI) | payer OTHER ==
[2018-05-30 12:01] LABS: ANION GAP 9 MEQ/L (8-16); BLOOD UREA NITROGEN 34 MG/DL (7-18); CALCIUM LEVEL 9.1 MG/DL (8.8-10.2); CARBON DIOXIDE LEVEL 32 MEQ/L (21-32); CHLORIDE LEVEL 99 MEQ/L (98-107); CREATININE FOR GFR 1.84 MG/DL (0.55-1.30); GLOMERULAR FILTRATION RATE 35.5 (>45); GLUCOSE, FASTING 146 MG/DL (70-100); NT-PRO BNP 3838 PG/ML (<125); POTASSIUM SERUM 5.1 MEQ/L (3.5-5.1); SODIUM LEVEL 140 MEQ/L (136-145)
== END ==
LOC: M LRY 09:12
DX: I12.9 Hypertensive chronic kidney disease with stage 1 through stage 4 chronic kidney disease, or unspecified chronic kidney disease (principal); R06.02 Shortness of breath; N18.9 Chronic kidney disease, unspecified
CPT/HCPCS: 80048